=== PATIENT | male | born 1955 | race Caucasian/White ===

== ENCOUNTER 2017-07-25 08:19 | Day surgery (SDC) | payer BC ==
--- NOTE | 2017-07-21 08:02 | HP ---
PREOPERATIVE HISTORY AND PHYSICAL: DATE OF SURGERY/ADMISSION: 07/25/17. DATE OF OFFICE VISIT/ENCOUNTER: 07/19/17. ATTENDING SURGEON: Magnolia Nguyen MD * (DICTATED BY PETE PADILLA) PROCEDURE: Right long and ring finger, trigger finger releases. CHIEF COMPLAINT: Right long and ring finger triggering. HISTORY OF PRESENT ILLNESS: This is a 62-year-old male who has had trouble with right long and ring finger trigger finger since 2001. He is not sure whether it was caused by an injury or not, but around that time he fell on some steps at work and sustained injury to the hand. He thought maybe he had fractured a bone in the hand, but never had x-rays or evaluation, but since then he has had clicking, catching, and locking anytime he is doing repeated grasping or making a fist. 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 He is quite bothered about the triggering. He has trouble grasping on to different tools, also releasing his supervisor coin machine because of the triggering. He has received cortisone injection in the past that was helpful; however, the symptoms have returned and now are even worse. He is bothered now by marked locking and pain in the ring finger and moderate locking and pain in the middle finger. He is interested at this time in more definitive treatment for this problem of his hand and has consented to proceed with surgery. PAST MEDICAL HISTORY: Unremarkable. PAST SURGICAL HISTORY: 1. Laminectomy at L5. 2. Tonsillectomy. 3. [place] teeth extraction. MEDICATIONS: 1. Ibuprofen 2. Tylenol p.r.n. ALLERGIES: No known drug allergies. FAMILY MEDICAL HISTORY: Heart disease, hypertension and cancer. 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 Denies tobacco use and recreational drug use. He drinks alcohol on rare occasion. REVIEW OF SYSTEMS: General: Negative for fevers, chills or night sweats. No known anesthesia problems. HEENT: Negative for headache, lightheadedness, or syncopal episodes. Integumentary: Negative for abrasions, lesions or open wounds. Cardiothoracic: Negative for hypertension, chest pain, palpitations or edema. Pulmonary: Negative for shortness of breath with exertion, chronic cough , COPD. GI: Negative for nausea, vomiting, diarrhea, constipation or GERD. : Negative for nocturia, urinary frequency, urgency, history of UTIs or kidney problems. Musculoskeletal: Positive for current complaints and occasional back pain. Neurological: Negative for paresthesias, numbness, history of seizures, stroke or epilepsy. Negative for depression/anxiety. Endocrine: Negative for diabetes and thyroid issues. Hematologic: Negative for easy bruising, anemia, excessive bleeding or history of DVT. Infectious Disease: Negative for history of MRSA, hepatitis C, HIV. PHYSICAL EXAMINATION GENERAL: Well-developed, well-nourished 62-year-old male in no acute distress. VITAL SIGNS: Height 5 feet 9.5 inches, weight 199 pounds, pulse rate 67, blood pressure 150/90. HEENT: Normocephalic, atraumatic. Pupils are equal, round and reactive to light and accommodation. Extraocular movements are intact. Throat is clear. NECK: Supple. No palpable lymph nodes. PULMONARY: Lungs are clear to auscultation bilaterally. No wheezes, rales or rhonchi. CARDIOVASCULAR: Regular rate and rhythm. S1, S2. No murmurs, rubs or gallops. No edema. ABDOMEN: Positive bowel sounds, soft, nontender. MUSCULOSKELETAL: On exam of his right hand, he has tenderness to palpation at the A1 leah of both the middle and ring fingers. When he flexes his fingers, the fingers lock. He has to passively extend them and it is painful. Neurovascular function is intact. NEUROLOGICAL: Alert and oriented x3. Cranial nerves II through XII are intact. Sensation is intact to light touch. IMPRESSION: Trigger fingers of right middle and ring fingers. PLAN: The patient is scheduled to undergo a right long and ring finger trigger finger release with Dr. Nguyen on 07/19/17. He will return to the office in 10 days after surgery for followup and suture removal. A prescription for Ultracet was e- scribed to the patient's pharmacy for postoperative pain management. PETE PADILLA [id number]/[facility] #: [id number] [facility]ITALNixon
[~2017-07-25 08:19] MED LIST: Lidocaine 1% INJ* 10 MG/ML 30 ML SDV ONE
[2017-07-25 10:46] VITALS: BP 148/85
--- NOTE | 2017-07-26 01:24 | OP ---
DATE OF OPERATION: 07/25/17 [facility] DATE OF : 51 SURGEON: Magnolia Nguyen MD INTERPRETATIVE DANCER: PETE Payan ANESTHESIA: Local. PRE-OP DIAGNOSIS: Trigger finger of the right middle and ring fingers. POST-OP DIAGNOSIS: Trigger finger of the right middle and ring fingers. OPERATIVE PROCEDURE: Trigger finger release, right middle and ring finger. ESTIMATED BLOOD LOSS: Zero. TOURNIQUET TIME: About 10 minutes. INDICATIONS FOR PROCEDURE: Aime is a 62-year-old male with walking of the middle and ring fingers with flexion. He presents for trigger finger release of the right middle and ring finger. DESCRIPTION OF PROCEDURE: The patient was brought to the operating room and was given a digital block with 10 cc of 1% plain lidocaine in the palm of his right hand. The skin of his right hand and forearm was prepped and draped in the usual sterile fashion. The hand and forearm were exsanguinated and the tourniquet elevated to 250 mmHg. A transverse incision was made, centered between the A1 leah of the middle and ring fingers. We dissected bluntly through the subcutaneous tissue down to the middle and ring finger A1 pulleys. These were divided longitudinally, completely releasing the flexor tendons, which had some mild abrasion superficially. There was also some mild amount of tenosynovitis and this was debrided. The wound was irrigated and the skin edges reapproximated with 4-0 nylon suture. The wound was dressed with Xeroform , 4x4, Webril, and an Ricardo wrap. The patient tolerated the procedure well and was brought to the recovery room in good condition. [id number]/[facility] #: [id number] MTDD
== END 2017-07-25 10:47 | disposition home or self-care (01) ==
LOC: OREAST 08:19
PROVIDERS: ATTEND Orthopaedic Surgery
DX: M65.341 Trigger finger, right ring finger (principal); M65.331 Trigger finger, right middle finger